=== PATIENT | male | born 1990 | race Caucasian/White ===

== ENCOUNTER 2020-10-30 16:35 | Emergency (ER) | payer BC, OTHER ==
[~2020-10-30] VITALS: Ht 177.8 cm; Wt 104.3 kg
[~2020-10-30 16:35] MED LIST: Bactrim Ds Tab1 EACH PO; CEPH500 PO; Crutch1 EACH MISC; HYDACE5 PO; HYDGUAL120 PO; IBUP800 PO; MULVITSO; NAPR375 PO; ONDA8ODT MM; OXYACE5T PO; TRAM50 PO; Ultram50 MG PO; Veetids 500500 MG PO; [UNRECOGNIZED DRUG - CODE]
== END 2020-10-30 19:35 | disposition left against medical advice (07) ==
LOC: ER 16:35
DX: J02.9 Acute pharyngitis, unspecified (principal); Z88.0 Allergy status to penicillin; Z88.5 Allergy status to narcotic agent; Z79.899 Other long term (current) drug therapy
CPT/HCPCS: 99282

== ENCOUNTER 2021-08-06 10:57 | Emergency (ER) | payer OTHER ==
[~2021-08-06] VITALS: Ht 175.3 cm; Wt 95.2 kg
== END 2021-08-06 12:51 | disposition home or self-care (01) ==
LOC: ER 10:57
DX: M25.572 Pain in left ankle and joints of left foot (principal); F17.210 Nicotine dependence, cigarettes, uncomplicated
CPT/HCPCS: 73610